=== PATIENT | female | born 1995 | race Caucasian/White ===

== ENCOUNTER 2025-04-05 21:42 | Emergency (ER) | payer OTHER ==
[~2025-04-05] VITALS: Ht 152.4 cm; Wt 87.0 kg
[2025-04-05 22:09] VITALS: O2SAT 98
[2025-04-05] MEDS ORDERED: KETOROLAC 15MG/ML VIAL IM ONE (23:00)
[2025-04-05] MEDS ORDERED: ACETAMINOPHEN 325MG TABLET PO ONE (23:00)
[2025-04-05] MEDS ORDERED: ACET-2708 MT (23:33)
[2025-04-05] MEDS ORDERED: CYCL5TAB3 MT (23:33)
[2025-04-05] MEDS ORDERED: IBUP-2028 MT (23:33)
[2025-04-06 00:37] VITALS: BP 129/76; PULSE 79; RESP 16; TEMP 36.6; O2SAT 100
== END 2025-04-06 00:59 | disposition home or self-care (01) ==
LOC: ER 21:42
DX: S39.012A Strain of muscle, fascia and tendon of lower back, initial encounter (principal); Z98.84 Bariatric surgery status; Z98.890 Other specified postprocedural states; V43.52XA Car driver injured in collision with other type car in traffic accident, initial encounter; Y93.89 Activity, other specified; Y92.89 Other specified places as the place of occurrence of the external cause; Y99.8 Other external cause status
CPT/HCPCS: 99283